=== PATIENT | male | born 1985 | race Caucasian/White ===

== ENCOUNTER → 2019-10-11 | Outpatient (CLI) | payer BC ==
[~2019-10-11] MED LIST: NO HOME MEDICATIONS; NORCO 325 MG-51 TAB PO; VALIUM5 MG PO
== END ==
LOC: COL.RAD 09:40
DX: N20.0 Calculus of kidney (principal); K76.9 Liver disease, unspecified
CPT/HCPCS: Q9967

== ENCOUNTER → 2021-06-28 | Outpatient (CLI) | payer BC | LOC: MHCPAIN 09:43 | DX: M47.896 Other spondylosis, lumbar region (principal); M51.36 Other intervertebral disc degeneration, lumbar region ==

== ENCOUNTER → 2021-07-22 | Outpatient (CLI) | payer BC | LOC: MHCPAIN 13:01 | DX: M54.50 Low back pain, unspecified (principal); M53.3 Sacrococcygeal disorders, not elsewhere classified; M47.816 Spondylosis without myelopathy or radiculopathy, lumbar region ==

== ENCOUNTER → 2021-07-29 | Outpatient (CLI) | payer BC | LOC: MHCPAIN 11:21 | DX: M47.816 Spondylosis without myelopathy or radiculopathy, lumbar region (principal); M54.50 Low back pain, unspecified; M53.3 Sacrococcygeal disorders, not elsewhere classified ==

== ENCOUNTER → 2021-09-02 | Outpatient (CLI) | payer BC | LOC: MHCPAIN 13:26 | DX: M47.817 Spondylosis without myelopathy or radiculopathy, lumbosacral region (principal); M54.50 Low back pain, unspecified; M53.3 Sacrococcygeal disorders, not elsewhere classified | CPT/HCPCS: J1100; J2250; J3010 ==

== ENCOUNTER → 2021-10-23 | Outpatient (CLI) | payer BC | LOC: MHCPAIN 10:37 | DX: M47.816 Spondylosis without myelopathy or radiculopathy, lumbar region (principal); M51.36 Other intervertebral disc degeneration, lumbar region | CPT/HCPCS: G0463 ==

== ENCOUNTER → 2023-08-12 | Outpatient (CLI) | payer OTHER ==
[~2023-08-12] MED LIST changes: +Barium Sulfate 2% Oral Susp 450 ML X 2 BOTTLES PO SCH; +Iohexol 300 - 100 ML VIAL IV ONE; +NS 100 ML IV SCH
== END ==
LOC: COL.RAD 07:57
DX: Q61.3 Polycystic kidney, unspecified (principal); N20.0 Calculus of kidney
CPT/HCPCS: Q9967

== ENCOUNTER → 2023-09-21 | Outpatient (CLI) | payer OTHER ==
[~2023-09-21] MED LIST changes: -Barium Sulfate 2% Oral Susp 450 ML X 2 BOTTLES PO SCH; -Iohexol 300 - 100 ML VIAL IV ONE; -NS 100 ML IV SCH
== END ==
LOC: MHCPAIN 14:01
DX: M47.896 Other spondylosis, lumbar region (principal); M54.50 Low back pain, unspecified; Q61.2 Polycystic kidney, adult type
CPT/HCPCS: G0463

== ENCOUNTER → 2023-12-18 | Outpatient (CLI) | payer OTHER | LOC: MHCPAIN 09:00 | DX: M54.50 Low back pain, unspecified (principal); Q61.3 Polycystic kidney, unspecified | CPT/HCPCS: G0463 ==